=== PATIENT | female | born 1965 | race Caucasian/White ===

== ENCOUNTER 2022-01-21 05:21 | Inpatient (IN) | payer MEDICAID, OTHER ==
[~2022-01-21] VITALS: Ht 175.3 cm; Wt 88.5 kg
[2022-01-21 07:05] LABS: Basophils # (auto) 0 10 ^3/uL (0-0.2); Basophils % (auto) 0.3 % (0.0-2.0); Eosinophils # (auto) 0 10 ^3/uL (0-0.8); Hematocrit 38.4 % (36.0-46.0); Hemoglobin 12.9 g/dL (12.2-16.2); Lymphocytes # (auto) 0.6 10 ^3/uL (0.4-5.4); Lymphocytes % (auto) 7.2 % (10.0-50.0); Mean Corpuscular Hemoglobin 29.2 pg (28.0-32.0); Mean Corpuscular Hgb Conc. 33.5 g/dL (32.0-36.0); Mean Corpuscular Volume 87.3 fL (80.0-100.0); Monocytes % (auto) 11.7 % (0.0-12.0); Neutrophils # (auto) 6.6 10 ^3/uL (1.6-8.6); Neutrophils % (auto) 80.8 % (37.0-80.0); Red Cell Distribution Width 16.4 % (11.8-14.3); White Blood Cell 8.2 10^3/uL (4.4-10.8)
[2022-01-21 07:27] LABS: Albumin 3.4 g/dL (3.4-5.0); Calcium 8.9 mg/dL (8.5-10.1); Potassium 3.4 mmol/L (3.5-5.1)
[2022-01-21 07:28] LABS: Urine Bacteria FEW /hpf (None Seen); Urine Blood 1+ /uL (Negative); Urine Budding Yeast LOADED /hpf (None Seen); Urine Specific Gravity 1.013 (1.001-1.035); Urine WBC 1285 /hpf (0 - 5)
[2022-01-21 07:31] LABS: BUN/Creatinine Ratio 10.1; Bilirubin, Total 1.4 mg/dL (0.2-1.0); Total Protein 8.1 g/dL (6.4-8.2)
[2022-01-21] MEDS ORDERED: ACETAMINOPHEN 325 MG TAB PO ONE (09:15)
[2022-01-21] MEDS ORDERED: LACTATED RINGER'S 1,000 ML IV ONE (09:15)
[2022-01-21] MEDS ORDERED: cefTRIAXone 1GM/50ML D5W 50 ML IV ONE (09:30)
[2022-01-21] MEDS ORDERED: ACETAMINOPHEN 325 MG TAB PO PRN (11:15)
[2022-01-21] MEDS ORDERED: HYDROcodone-ACET 5/325MG TAB PO PRN (11:15)
[2022-01-21] MEDS ORDERED: ONDANSETRON HCL 4 MG/2 ML VIAL IV PRN (11:15)
[2022-01-21] MEDS ORDERED: DOCUSATE SOD 100 MG CAP PO PRN (11:15)
[2022-01-21] MEDS ORDERED: IOTHALAMATE MEGLUMINE INJ 250ML BOT UR ONE (12:21)
[2022-01-21 12:31] LABS: Bilirubin, Direct 0.6 mg/dL (0-0.2); Bilirubin, Total 1.2 mg/dL (0.2-1.0)
[2022-01-21] MEDS: SODIUM CHLOR 0.9% PF (SALINE LOCK) 10ML VIAL/SYR IV SCH ×2 (14:00→23:30)
[2022-01-21 16:00] VITALS: BP 142/82
[2022-01-21] MEDS ORDERED: CARV6.2551 PO (16:06)
[2022-01-21] MEDS ORDERED: [UNRECOGNIZED DRUG - CODE] PO (16:06)
[2022-01-21] MEDS ORDERED: BENA10TA15 PO (16:06)
[2022-01-21 16:18] VITALS: BP 142/82
[2022-01-21] MEDS: TAMSULOSIN HYDROCHLORIDE 0.4 MG CAP PO SCH (17:44)
[2022-01-21] MEDS: HYDROcodone-ACET 5/325MG TAB PO PRN (21:52)
[2022-01-21 22:00] VITALS: BP 122/73
[2022-01-21] MEDS: HEPARIN SODIUM (PORCINE) 5000 UNITS/ML 1ML VIAL SC SCH (23:27)
[2022-01-22 03:30] VITALS: BP 107/61
[2022-01-22 05:00] VITALS: BP 107/61
[2022-01-22] MEDS: SODIUM CHLOR 0.9% PF (SALINE LOCK) 10ML VIAL/SYR IV SCH ×3 (06:25→22:50)
[2022-01-22] MEDS: HEPARIN SODIUM (PORCINE) 5000 UNITS/ML 1ML VIAL SC SCH (07:01)
[2022-01-22 09:15] VITALS: BP 92/45
[2022-01-22] MEDS ORDERED: cefTRIAXone 1GM/50ML D5W 50 ML IV SCH (10:00)
[2022-01-22] MEDS ORDERED: VANCOMYCIN PER PHARMACY 0 MG IV SCH (11:00)
[2022-01-22] MEDS: SODIUM CHLORIDE 0.9% 1,000 ML IV SCH ×2 (11:03→19:00)
[2022-01-22] MEDS: PIPERACILLIN-TAZOB 3.375GM 100 ML IV SCH ×3 (11:09→22:50)
[2022-01-22] MEDS ORDERED: VANCOMYCIN 1GM/250ML 250 ML IV SCH (12:00)
[2022-01-22 12:11] LABS: Albumin 3.1 g/dL (3.4-5.0); BUN/Creatinine Ratio 11.1; Calcium 8.8 mg/dL (8.5-10.1); Phosphorus 3.5 mg/dL (2.5-4.90); Potassium 3.7 mmol/L (3.5-5.1)
[2022-01-22 13:00] VITALS: BP 123/85
[2022-01-22] MEDS: HYDROmorphone HCL 2 MG/ML VL/or syr IV PRN ×2 (15:22→20:37)
[2022-01-22] MEDS: VANCOMYCIN 1GM/250ML 250 ML IV SCH (15:37)
[2022-01-22 17:08] VITALS: BP 133/80
[2022-01-22] MEDS: TAMSULOSIN HYDROCHLORIDE 0.4 MG CAP PO SCH (18:00)
[2022-01-22 22:00] VITALS: BP 118/99
[2022-01-23] MEDS: VANCOMYCIN 1GM/250ML 250 ML IV SCH ×2 (02:35→14:00)
[2022-01-23 05:00] VITALS: BP 125/71
[2022-01-23] MEDS: SODIUM CHLORIDE 0.9% 1,000 ML IV SCH ×3 (06:50→21:00)
[2022-01-23] MEDS: SODIUM CHLOR 0.9% PF (SALINE LOCK) 10ML VIAL/SYR IV SCH ×3 (06:51→22:00)
[2022-01-23 06:53] LABS: Potassium 3.5 mmol/L (3.5-5.1)
[2022-01-23] MEDS: PIPERACILLIN-TAZOB 3.375GM 100 ML IV SCH ×2 (06:53→12:00)
[2022-01-23 06:55] LABS: BUN/Creatinine Ratio 17.2
[2022-01-23 09:00] VITALS: BP 133/67
[2022-01-23 13:00] VITALS: BP 135/78
[2022-01-23 17:00] VITALS: BP 151/64
[2022-01-23] MEDS: TAMSULOSIN HYDROCHLORIDE 0.4 MG CAP PO SCH (17:38)
[2022-01-23 21:42] VITALS: BP 123/63
[2022-01-24] MEDS: HYDROcodone-ACET 5/325MG TAB PO PRN (00:45)
[2022-01-24] MEDS: VANCOMYCIN 1GM/250ML 250 ML IV SCH ×2 (02:26→14:00)
[2022-01-24] MEDS: SODIUM CHLORIDE 0.9% 1,000 ML IV SCH ×3 (03:02→19:00)
[2022-01-24 04:40] VITALS: BP 112/68
[2022-01-24] MEDS: SODIUM CHLOR 0.9% PF (SALINE LOCK) 10ML VIAL/SYR IV SCH ×2 (05:29→13:30)
[2022-01-24] MEDS: PIPERACILLIN-TAZOB 3.375GM 100 ML IV SCH ×4 (05:29→18:00)
[2022-01-24] MEDS ORDERED: ceFAZolin 1GM/50ML 100 ML IV ONE (07:30)
[2022-01-24 08:30] VITALS: BP 115/75
[2022-01-24] MEDS ORDERED: CIPR500T4 PO (12:14)
[2022-01-24 12:35] VITALS: BP 118/69
[2022-01-24] MEDS: HYDROmorphone HCL 2 MG/ML VL/or syr IV PRN (14:07)
[2022-01-24 16:01] VITALS: BP 115/75
[2022-01-24 16:47] VITALS: BP 124/69
[2022-01-24] MEDS: TAMSULOSIN HYDROCHLORIDE 0.4 MG CAP PO SCH (18:00)
== END 2022-01-24 17:00 | disposition home or self-care (01) | DRG 463 ==
LOC: ER 05:21 → EDBD 05:21 → OVERFLOW 11:08 → EAST 15:12
PROVIDERS: ADMIT Internal Medicine; ATTEND Hospitalist
DX: N30.01 Acute cystitis with hematuria (principal); Z20.822 Contact with and (suspected) exposure to COVID-19; Z79.899 Other long term (current) drug therapy; Z88.5 Allergy status to narcotic agent; Z88.8 Allergy status to other drugs, medicaments and biological substances; Z80.3 Family history of malignant neoplasm of breast; Z82.3 Family history of stroke
CPT/HCPCS: 36415; 74176; 80048; 80053; 80069; 80202; 81001; 82247; 82248; 83605; 83690; 85025; 85049; 87040; 87086; 93005; 96361; 96365; G0378; J0690; J0696; J2543

== ENCOUNTER 2022-08-09 03:50 | Emergency (ER) | payer MEDICAID ==
[~2022-08-09] VITALS: Ht 170.2 cm; Wt 93.0 kg
[~2022-08-09 03:50] MED LIST: BENA10TA15 PO; CARV6.2551 PO; CIPR500T4 PO; [UNRECOGNIZED DRUG - CODE] PO
[2022-08-09] MEDS ORDERED: amLODIPine BESYLATE 5 MG TAB PO ONE (04:00)
[2022-08-09] MEDS ORDERED: KETOROLAC TROMETH 30 MG/ML 1ML VIAL IV ONE (04:15)
[2022-08-09 04:33] LABS: Basophils # (auto) 0 10 ^3/uL (0-0.2); Basophils % (auto) 0.3 % (0.0-2.0); Eosinophils # (auto) 0 10 ^3/uL (0-0.8); Eosinophils % (auto) 0.3 % (0.0-7.0); Hematocrit 36.2 % (36.0-46.0); Hemoglobin 12.7 g/dL (12.2-16.2); Lymphocytes # (auto) 0.5 10 ^3/uL (0.4-5.4); Lymphocytes % (auto) 8.5 % (10.0-50.0); Mean Corpuscular Hemoglobin 31.6 pg (28.0-32.0); Mean Corpuscular Hgb Conc. 35.1 g/dL (32.0-36.0); Mean Corpuscular Volume 90.2 fL (80.0-100.0); Monocytes # (auto) 0.4 10 ^3/uL (0-1.3); Monocytes % (auto) 7.3 % (0.0-12.0); Neutrophils # (auto) 5.1 10 ^3/uL (1.6-8.6); Neutrophils % (auto) 83.6 % (37.0-80.0); Red Blood Cells 4.01 10^6/uL (4.0-5.20); White Blood Cell 6.1 10^3/uL (4.4-10.8)
[2022-08-09 04:48] LABS: INR 0.96 (0.9-1.15)
[2022-08-09 04:55] LABS: Albumin 3.7 g/dL (3.4-5.0); Calcium 8.7 mg/dL (8.5-10.1); Potassium 3.5 mmol/L (3.5-5.1)
[2022-08-09 04:59] LABS: BUN/Creatinine Ratio 21.3; Bilirubin, Total 0.8 mg/dL (0.2-1.0); Total Protein 7.4 g/dL (6.4-8.2)
[2022-08-09] MEDS ORDERED: PANT40TA2 PO (07:25)
[2022-08-09 07:28] LABS: Urine Bacteria FEW /hpf (None Seen); Urine Blood 3+ /uL (Negative); Urine Specific Gravity 1.014 (1.001-1.035); Urine WBC 238 /hpf (0 - 5)
[2022-08-09] MEDS ORDERED: PANTOPRAZOLE 40 MG TAB PO ONE (07:30)
[2022-08-09] MEDS ORDERED: cefTRIAXone W LIDOCAINE 1 GM IM IM ONE (07:45)
[2022-08-09] MEDS ORDERED: NITR-87 PO (07:45)
[2022-08-09 10:25] VITALS: BP 115/68
== END 2022-08-09 10:34 | disposition home or self-care (01) ==
LOC: ER 03:50 → EDBD 03:50 → ER 10:34
DX: N39.0 Urinary tract infection, site not specified (principal); K29.70 Gastritis, unspecified, without bleeding; I10 Essential (primary) hypertension; Z88.8 Allergy status to other drugs, medicaments and biological substances; Z88.5 Allergy status to narcotic agent; Z79.899 Other long term (current) drug therapy
CPT/HCPCS: 36415; 71045; 74176; 80053; 81001; 83690; 83735; 84484; 85025; 85610; 85730; 93005; 96372; 96374; 99285; J0696; J1885